=== PATIENT | male | born 1990 | race Caucasian/White ===

== ENCOUNTER 2016-10-05 15:51 | Emergency (ER) | payer OTHER ==
[2016-10-05 16:01] VITALS: RESP 16; TEMP 97.9
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
[2016-10-05] MEDS ORDERED: CEPHALEXIN 500MG PREPACK#4 BTL TAKEHOME ONE (19:14)
[2016-10-05 19:45] VITALS: BP 159/83; PULSE 80; O2SAT 96
== END 2016-10-05 19:42 | disposition home or self-care (01) ==
PROC: 3E0T3BZ Introduction of Anesthetic Agent into Peripheral Nerves and Plexi, Percutaneous Approach (ICD-10-PCS; principal; 2016-10-05)
DX: S41.112A Laceration without foreign body of left upper arm, initial encounter (principal); V18.0XXA Pedal cycle driver injured in noncollision transport accident in nontraffic accident, initial encounter; Y92.481 Parking lot as the place of occurrence of the external cause; Y99.8 Other external cause status; Y93.55 Activity, bike riding